=== PATIENT | female | born 1950 | race Native Hawaiian/Other Pacific Islander ===

== ENCOUNTER 2018-08-19 09:48 | Outpatient (CLI) | payer MEDICARE | END 2018-08-19 09:49 | disposition home or self-care (01) | LOC: C.LAB 09:48 | DX: E11.65 Type 2 diabetes mellitus with hyperglycemia (principal); I10 Essential (primary) hypertension; E78.00 Pure hypercholesterolemia, unspecified; N18.9 Chronic kidney disease, unspecified; E55.9 Vitamin D deficiency, unspecified; G20 Parkinson's disease ==